=== PATIENT | female | born 1945 ===

== ENCOUNTER → 2018-03-18 | Outpatient (CLI) | payer OTHER, BC | LOC: BMCIMAGING 13:51 | PROVIDERS: ATTEND Family Medicine | DX: S32.591A Other specified fracture of right pubis, initial encounter for closed fracture (principal) ==

== ENCOUNTER → 2018-04-30 | Outpatient (CLI) | payer OTHER, BC | LOC: BMCIMAGING 16:06 | PROVIDERS: ATTEND Family Medicine | DX: J98.4 Other disorders of lung (principal) ==